=== PATIENT | male | born 1990 | race Caucasian/White ===

== ENCOUNTER 2020-10-07 14:12 | Emergency (ER) | payer OTHER ==
[2020-10-07] MEDS ORDERED: Nitroglycerin 0.4 MG TAB (25 Tab Bottle) ONE (14:50)
[2020-10-07] MEDS ORDERED: Aspirin Chewable 81 MG TAB ONE (14:50)
[2020-10-07 15:30] LABS: #Basophils 0.1 thou/uL (0.0-0.2); #Eosinphils 0.1 thou/uL (0.0-0.7); #Lymphocytes 0.9 thou/uL (1.20-3.40); #Monocytes 0.3 thou/uL (0.11-0.59); #Neutrophils 3.6 thou/uL (1.40-6.50); %Basophils 1.4 % (0.0-1.0); %Eosinophils 1.8 % (0.0-10.0); %Lymphocytes 18.6 % (21.0-51.0); %Monocytes 6.3 % (0.0-10.0); Hemoglobin 17.8 g/dL (14.0-18.0); Mean Corpuscular HGB CONC 31.9 g/dL (32.0-36.0); Mean Corpuscular Hemoglobin 27.9 pg (27.0-31.0); Mean Corpuscular Volume 87.4 fL (78.0-98.0); RBC Distribution Width 11.1 % (11.5-14.5); Red Blood Cell (RBC) Count 6.37 mill/uL (4.70-6.10)
[2020-10-07 15:32] LABS: Platelet Count 95 thou/uL (130-400)
[2020-10-07 15:39] LABS: ALT (SGPT) 29 U/L (8-55); Albumin 4.7 g/dL (3.5-5.0); Alkaline Phosphatase 75 U/L (40-110); Anion Gap 16 mmol/L (10-20); BUN (Urea Nitrogen) 15 mg/dL (8.9-20.6); Bilirubin, Total 0.5 mg/dL (0.2-1.2); Calc. Creatinine Clearance 0 mL/min (70-130); Calcium 9.3 mg/dL (7.8-10.44); Carbon Dioxide 23 mmol/L (22-29); Chloride 102 mmol/L (98-107); Globulin 3.5 g/dL (2.4-3.5); Glucose 94 mg/dL (70-105); Potassium 4.1 mmol/L (3.5-5.1); Protein, Total 8.2 g/dL (6.0-8.3); Sodium 137 mmol/L (136-145)
[2020-10-07 15:42] LABS: AST (SGOT) 26 U/L (5-34)
== END 2020-10-07 16:08 | disposition home or self-care (01) ==
LOC: NAV ERS 14:12
DX: R07.9 Chest pain, unspecified (principal); D69.6 Thrombocytopenia, unspecified
CPT/HCPCS: 71046; 80053; 84484; 85025; 93005